=== PATIENT | male | born 1960 | race Caucasian/White ===

== ENCOUNTER 2016-06-18 06:02 | Day surgery (SDC) | payer MEDICAID ==
[~2016-06-18] VITALS: Ht 177.8 cm; Wt 133.0 kg
[~2016-06-18 06:02] MED LIST: AMLO5TAB2 PO; ATOR20TA9 PO; FAMO20TA7 PO; METO25TA35 PO; OXYC-229 PO; OXYC20TA42 PO; TAMS0.4C2 PO; TRAZ100T15 PO
[2016-06-18] MEDS ORDERED: LACTATED RINGERS 1,000 ML IV SCH (06:31)
[2016-06-18 06:32] VITALS: BP 127/77
[2016-06-18] MEDS ORDERED: NITR0.6T4 PO (06:38)
[2016-06-18] MEDS ORDERED: IBUP800T PO (06:38)
[2016-06-18] MEDS ORDERED: ROPI1TAB2 PO (06:38)
[2016-06-18] MEDS ORDERED: ASPI-496 PO (06:38)
[2016-06-18] MEDS ORDERED: MIDAZOLAM 1 MG/ML, 2ML ONE (06:39)
[2016-06-18] MEDS ORDERED: FENTANYL PF 100 MCG/2ML ONE (06:39)
[2016-06-18] MEDS ORDERED: ALBU18HF INH (07:05)
[2016-06-18 07:24] LABS: BLOOD UREA NITROGEN 17 mg/dL (7-18)
[2016-06-18 07:29] LABS: ASPARTATE AMINO TRANSFERASE 16 U/L (15-37)
[2016-06-18] MEDS ORDERED: hydrALAzine 20 MG/ML, 1ML IV PRN (07:30)
[2016-06-18] MEDS ORDERED: HYDROmorphone 1 MG/ML, 1ML IV PRN (07:30)
[2016-06-18] MEDS ORDERED: METOCLOPRAMIDE 5 MG/ML, 2ML IV PRN (07:30)
[2016-06-18] MEDS ORDERED: PROMETHAZINE 25 MG/ML, 1ML IV PRN (07:30)
[2016-06-18] MEDS ORDERED: MEPERIDINE/PF 25MG/0.5ML IVPush PRN (07:30)
[2016-06-18] MEDS ORDERED: ALBUTEROL SULFATE 2.5 MG/3 ML NPPB PRN (07:30)
[2016-06-18] MEDS ORDERED: FENTANYL PF 100 MCG/2ML IV PRN (07:30)
[2016-06-18] MEDS ORDERED: ONDANSETRON 2MG/ML, 2ML IVPush PRN (07:30)
[2016-06-18] MEDS ORDERED: ACETAMINOPHEN 325 MG TABLET PO PRN (07:30)
[2016-06-18] MEDS ORDERED: OXYcodone 5 MG/5 ML ORAL.SOL UDC PO PRN (07:30)
[2016-06-18] MEDS ORDERED: LABETALOL 5MG/ML, 20ML IV PRN (07:30)
[2016-06-18] MEDS ORDERED: PROPOFOL 10 MG/ML, 20ML ONE (07:53)
[2016-06-18] MEDS ORDERED: CIPROFLOXACIN 400MG/200ML PMX ONE (07:53)
[2016-06-18] MEDS ORDERED: OXYcodone 5 MG/5 ML ORAL.SOL UDC ONE (09:06)
[2016-06-18] MEDS ORDERED: HYDROmorphone 1 MG/ML, 1ML IV ONE (10:30)
[2016-06-18] MEDS ORDERED: HYDROmorphone 2 MG/ML, 1ML ONE (10:34)
[2016-06-18] MEDS ORDERED: OMNIPAQUE 350 MG/ML, 50 ML BOTTLE ONE (11:00)
[2016-06-18] MEDS ORDERED: KETOROLAC 30 MG/1 ML ONE (11:23)
[2016-06-18] MEDS ORDERED: OXYcodone/APAP 10/325MG TABLET ONE (11:25)
[2016-06-18] MEDS ORDERED: OxyconTIN ER 20 MG TAB.ER PO ONE (11:30)
[2016-06-18] MEDS ORDERED: OXYcodone/APAP 10/325MG TABLET PO ONE (11:30)
[2016-06-18] MEDS ORDERED: KETOROLAC 30 MG/1 ML IVPush ONE (11:30)
[2016-06-18] MEDS ORDERED: OxyconTIN ER 10 MG TAB.ER ONE ×2 (11:43)
== END 2016-06-18 14:45 ==
LOC: OUT 06:02
PROVIDERS: ATTEND Urology
DX: N20.0 Calculus of kidney (principal); N40.0 Benign prostatic hyperplasia without lower urinary tract symptoms; I10 Essential (primary) hypertension; I25.2 Old myocardial infarction; E78.00 Pure hypercholesterolemia, unspecified; K21.9 Gastro-esophageal reflux disease without esophagitis; Z87.39 Personal history of other diseases of the musculoskeletal system and connective tissue; Z80.52 Family history of malignant neoplasm of bladder; Z81.8 Family history of other mental and behavioral disorders; Z87.891 Personal history of nicotine dependence; Z72.89 Other problems related to lifestyle
CPT/HCPCS: 36415; 52005; 80053; 81003; 93005; C1758; C1769; J0744; J1885; J2250; J2704; J3010; J7120; Q9967